=== PATIENT | female | born 1965 | race Caucasian/White ===

== ENCOUNTER 2019-05-23 08:16 | Emergency (ER) | payer OTHER ==
[2019-05-23 08:22] VITALS: TEMP 99; BMI 27.4
[2019-05-23] MEDS ORDERED: diazePAM 5 MG TABLET PO ONE (08:39)
[2019-05-23] MEDS ORDERED: KETOROLAC TROMETHAMINE 30 MG/1 ML VIAL IM ONE (08:39)
--- NOTE | 2019-05-23 08:39 | PDOC ---
History of Present Illness - General Chief Complaint: Back Pain Stated Complaint: lower abck pain Time Seen by Provider: 05/23/19 08:34 - History of Present Illness Initial Comments: 05/23/19 09:14 53 years old past medical history significant for [id number] diabetes presents to the emergency department with several day history of low back discomfort predominantly right-sided lower back. Pain started after patient was bending over cleaning a tub has nonradiating low back discomfort which is worse with change in position worse with bending over. It is moderate in severity persistent constant changes with position sharp in nature patient denies any fever chills recent weight loss. Patient denies any weakness numbness urinary bladder incontinence rectal incontinence. Patient denies any abdominal pain nausea vomiting diarrhea fevers or chills. Past History - Past Medical History Allergies/Adverse Reactions: Allergies Allergy/AdvReac Type Severity Reaction Status Date / Time No Known Drug Allergies Allergy Verified 05/23/19 08:17 Home Medications: Ambulatory Orders metFORMIN HCL [Glucophage -] 1,000 mg PO BID 05/24/14 Diazepam [Valium] 2 mg PO BID #6 tablet MDD 4 05/23/19 Dulaglutide [Trulicity] 1.5 mg SQ ASDIR 05/23/19 Anemia: No Asthma: No Cancer: No Cardiac Disorders: No CVA: No COPD: No CHF: No Dementia: No Diabetes: Yes GI Disorders: No Disorders: No HTN: Yes Hypercholesterolemia: No Liver Disease: No Seizures: No Thyroid Disease: No - Surgical History Abdominal Surgery: No Appendectomy: Yes Cardiac Surgery: No Cholecystectomy: No Lung Surgery: No Neurologic Surgery: No Orthopedic Surgery: No - Psycho Social/Smoking Cessation Hx Smoking History: Never smoked Hx Alcohol Use: No Drug/Substance Use Hx: No Substance Use Type: None Hx Substance Use Treatment: No Review of Systems - Review of Systems Comments:: 05/23/19 09:39 ROS: A complete review of 10 out of 10 review of systems is taken and is negative apart from what is previously mentioned below and in the HPI. *Physical Exam - Vital Signs Last Vital Signs Temp Pulse Resp BP Pulse Ox 99 F 99 H 19 191/111 H 99 05/23/19 08:16 05/23/19 08:16 05/23/19 08:16 05/23/19 08:16 05/23/19 08:16 - Physical Exam Comments: 05/23/19 09:39 Vitals: Triage Vital signs reviewed General Appearance: No acute distress, well nourished well developed, Head: Atraumatic, Cardiac: Regular rate and rhythym, no murmurs, no rubs, no gallops, Lungs: Clear to auscultation bilateral, good air movement bilaterally, Abdomen: Soft, non distended, normal bowel sounds, non tender to palpation Musculoskeletal: Reproducible right lower back tenderness to palpation exacerbated with straight leg raise. Neurovascularly intact distally. Good reflexes distally. Extremities: Full range of motion to all extremities, no cyanosis, clubbing, or edema Skin: Warm and dry, no rashes or lesions, no rash, no petechiae Neuro: AOX3; cranial Nerves 2-12 grossly intact, strength intact to all extremities, sensation intact to all extremities, gait normal Psych: Normal mood, normal affect Medical Decision Making - Medical Decision Making 05/23/19 10:21 Atraumatic reproducible musculoskeletal low back discomfort in the context of bending over. No red flags in patient's history. Status post Toradol and Valium patient feels better. No weakness numbness on exam We will have patient follow-up with orthopedics this week short course of NSAIDs and Valium Findings, need for follow-up, and strict return instructions discussed with patient. Discharge - Discharge Information Problems reviewed: Yes Clinical Impression/Diagnosis: Low back pain Qualifiers: Chronicity: acute Back pain laterality: right Sciatica presence: without sciatica Qualified Code(s): M54.5 - Low back pain Condition: Stable Disposition: HOME - Admission No - Additional Discharge Information Prescriptions: Diazepam [Valium] 2 mg PO BID #6 tablet MDD 4 - Follow up/Referral Referrals: Perez Luther MD [Staff Physician] - - Patient Discharge Instructions Patient Printed Discharge Instructions: Low Back Pain Additional Instructions: Take Aleve as directed on package twice a day for the next 5 days. Take Valium as prescribed. Follow-up with Dr. Luther this week. Return to the emergency department for any severe worsening symptoms or for any concerns. - Post Discharge Activity Work/Back to School Note: Back to Work
[2019-05-23] MEDS ORDERED: KETOROLAC TROMETHAMINE 30 MG/1 ML VIAL ONE (08:41)
[2019-05-23] MEDS ORDERED: diazePAM 5 MG TABLET ONE (08:41)
[2019-05-23 09:22] VITALS: BP 128/84; PULSE 89
== END 2019-05-23 10:40 | disposition home or self-care (01) ==
LOC: FER 08:16
PROC: 3E0233Z Introduction of Anti-inflammatory into Muscle, Percutaneous Approach (ICD-10-PCS; principal; 2019-05-23)
DX: M54.5 Low back pain (principal); E11.9 Type 2 diabetes mellitus without complications; I10 Essential (primary) hypertension
CPT/HCPCS: 72100-TC-FY; 99282-25